=== PATIENT | female | born 1950 | race Caucasian/White ===

== ENCOUNTER 2019-12-15 13:19 | Emergency (ER) | payer MEDICARE ==
--- NOTE | 2019-12-15 14:09 | ED ---
Complex/Multi-Sys Presentation - HPI Summary HPI Summary: 69 y/o female presented to [facility] after a fall 2 days ago. Pt was stepping onto a curb when her leg gave out from under her and she fell. She has pain in the knee, has been limping, and has nearly no ROM. Pt denies fever or chills. She cannot go to the bathroom on her own. Pt has HTN for which she has not been taking her medications due to negligence to get a refill recently. She drinks alcohol every day, but she claims it is not to excess. Medications reviewed. Allergies noted. Home Medications Medication Instructions Recorded Confirmed Type Aspirin EC TAB* [Ecotrin EC Low 81 mg PO DAILY 05/22/14 03/23/16 History Dose 81 MG*] Multivitamin [Multi-Vitamin] 1 tab PO DAILY 05/22/14 03/23/16 History Metoprolol Succinate XL TAB* 50 mg PO BEDTIME 03/18/16 03/23/16 History [Toprol XL TAB*] Timolol 0.25% OPHTH.SOLN* 1 drop BOTH EYES BEDTIME 03/18/16 03/23/16 History [Timoptic Ophth.soln 0.25%] Triamterene/HCTZ 37.5-25 MG* 1 cap PO BEDTIME 03/18/16 03/23/16 History [Dyazide CAP*] amLODIPine TAB* [Norvasc TAB*] 5 mg PO BID 03/18/16 03/23/16 History - History Of Current Complaint Chief Complaint: EDExtremityLower Time Seen by Provider: 12/15/19 13:52 Hx Obtained From: Patient Onset/Duration: Lasting Days, Still Present Severity Currently: Moderate Associated Signs And Symptoms: Positive: Other - positive arthralgia in left knee; negative chills. Negative: Fever - Allergies/Home Medications Allergies/Adverse Reactions: Allergies Allergy/AdvReac Type Severity Reaction Status Date / Time No Known Allergies Allergy Verified 12/15/19 13:23 Home Medications: Home Medications Aspirin EC TAB* [Ecotrin EC Low Dose 81 MG*] 81 mg PO DAILY 05/22/14 [History Confirmed 03/23/16] Multivitamin [Multi-Vitamin] 1 tab PO DAILY 05/22/14 [History Confirmed 03/23/16 ] Metoprolol Succinate XL TAB* [Toprol XL TAB*] 50 mg PO BEDTIME 03/18/16 [ History Confirmed 03/23/16] Timolol 0.25% OPHTH.SOLN* [Timoptic Ophth.soln 0.25%] 1 drop BOTH EYES BEDTIME 03/18/16 [History Confirmed 03/23/16] Triamterene/HCTZ 37.5-25 MG* [Dyazide CAP*] 1 cap PO BEDTIME 03/18/16 [History Confirmed 03/23/16] amLODIPine TAB* [Norvasc TAB*] 5 mg PO BID 03/18/16 [History Confirmed 03/23/16] PMH/Surg Hx/FS Hx/Imm Hx Endocrine/Hematology History: Reports: Other Endocrine/Hematological Disorders - PRE-DIABETIC Cardiovascular History: Reports: Hx Angina - MILD, OCCASSIONAL, NONE SINCE JANUARY 2016, Hx Hypertension - ON MEDS Denies: Hx Pacemaker/ICD Comment Only: Other Cardiovascular Problems/Disorders - FOLLOWED BY DR SOPHIE ROJAS History: Reports: Hx Kidney Stones Musculoskeletal History: Reports: Hx Arthritis - STATES MILD, OCCASSIONAL DISCOMFORT, VARIOUS AREAS Sensory History: Reports: Hx Cataracts - BILATERAL, Hx Contacts or Glasses - GLASSES, Hx Glaucoma - ON NIGHTLY DROPS Denies: Hx Hearing Aid Opthamlomology History: Reports: Hx Cataracts - BILATERAL, Hx Contacts or Glasses - GLASSES, Hx Glaucoma - ON NIGHTLY DROPS Psychiatric History: Denies: Hx Panic Disorder - Surgical History Surgery Procedure, Year, and Place: [facility] [place] Hx Anesthesia Reactions: No Infectious Disease History: No Infectious Disease History: Denies: Traveled Outside the [place] in Last 30 Days - Social History Alcohol Use: Daily Alcohol Amount: 1 GLASS WINE NIGHTLY Substance Use Type: Reports: None Smoking Status (MU): Never Smoked Tobacco Have You Smoked in the Last Year: No Review of Systems Negative: Fever, Chills Positive: Other - arthralgia, left knee; severely decreased ROM All Other Systems Reviewed And Are Negative: Yes Physical Exam - Summary Physical Exam Summary: Constitutional: Well-developed, Well-nourished, Alert. (-) Distressed Skin: Warm, Dry HENT: Normocephalic; Atraumatic Eyes: Conjunctiva normal Neck: Musculoskeletal ROM normal neck. (-) JVD, (-) Stridor, (-) Tracheal deviation Cardio: Rhythm regular, rate normal, Heart sounds normal; Intact distal pulses; Radial pulses are 2+ and symmetric. (-) Murmur; DP/PT pulses 2+ Pulmonary/Chest wall: Effort normal. (-) Respiratory distress, (-) Wheezes, (-) Rales Abd: Soft, (-) tenderness, (-) Distension, (-) Guarding, (-) Rebound Musculoskeletal: (-) Edema; Left knee held in flexion, swollen compared to right , no erythema or warmth; pain with lateral manipulation of left knee; anterior and posterior drawer signs negative Lymph: (-) Cervical adenopathy Neuro: Alert, Oriented x3 Psych: Mood and affect Normal Triage Information Reviewed: Yes Vital Signs On Initial Exam: Initial Vitals Temp Pulse Resp BP Pulse Ox 97.4 F 101 16 200/95 97 12/15/19 13:19 12/15/19 13:19 12/15/19 13:19 12/15/19 13:19 12/15/19 13:19 Vital Signs Reviewed: Yes Procedures - Sedation Patient Received Moderate/Deep Sedation with Procedure: No Diagnostics - Vital Signs Vital Signs Temp Pulse Resp BP Pulse Ox 12/15/19 13:19 97.4 F 101 16 200/95 97 - Laboratory Lab Statement: Any lab studies that have been ordered have been reviewed, and results considered in the medical decision making process. - Radiology left knee xray Radiology Interpretation Completed By: Radiologist Summary of Radiographic Findings: IMPRESSION: 1. There is a questionable nondisplaced fracture line extending from the intercondylar. groove of the femur proximally towards the medial aspect of the distal metaphysis. If the. patient's clinical presentation is consistent with nondisplaced fracture then superior. characterization can be made with CAT scan. 2. Degenerative changes and small suprapatellar joint effusion. This report was reviewed by the ED physician. - CT LE CT Interpretation Completed By: Radiologist Summary of CT Findings: IMPRESSION: CT findings indicate nondisplaced fracture involving the distal left femur as. described above. This report was reviewed by the ED physician. Complex Multi-Symp Course/Dx Course Of Treatment: Patient is here after a low mechanism injury to her left knee. The patient does have swelling to her left knee with tenderness with lateral flexion. Patient had an x-ray which showed a possible nondisplaced distal femur fracture. Patient had a social CT scan which did confirm this nondisplaced fracture. Orthopedic surgery was called and recommended a knee immobilizer and following up in clinic tomorrow. Patient and family were comfortable with this. Patient was encouraged to have her blood pressure rechecked at her primary care office as well. - Diagnoses Provider Diagnoses: Femur fracture, left - Physician Notifications Discussed Care Of Patient With: Rai Hernandez Time Discussed With Above Provider: 17:09 Instructed by Provider To: Other - Dr. Hernandez will look at CT in more detail. At 1721 Dr. Hernandez recommended a knee brace and a follow up in his office. Discharge ED - Sign-Out/Discharge Documenting (check all that apply): Patient Departure - dc - Discharge Plan Condition: Stable Disposition: HOME Patient Education Materials: Leg Fracture (ED) Referrals: Rai Hernandez MD [Medical Doctor] - Additional Instructions: Please take 600 mg of ibuprofen every 6 hours for pain You can add 650 mg of Tylenol every 6 hours for pain You can bear weight on your leg but do not put full weight Call the orthopedic surgeon's office tomorrow morning to set an appointment for tomorrow - Billing Disposition and Condition Condition: STABLE Disposition: Home - Attestation Statements Document Initiated by Lucy: Yes Documenting Scribe: Rikki Mallory Provider For Whom Lucy is Documenting (Include Credential): Deep Sorensen MD Scribe Attestation: Rikki García, scribed for Deep Sorensen MD on 12/15/19 at 2048. Scribe Documentation Reviewed: Yes Provider Attestation: The documentation as recorded by the Rikki coburn accurately reflects the service I personally performed and the decisions made by , Deep Sorensen MD Status of Scribe Document: Viewed
[2019-12-15] MEDS ORDERED: Ibuprofen TAB* 600 MG PO ONE (14:14)
[2019-12-15] MEDS ORDERED: Acetaminophen TAB* 325 MG PO ONE (14:14)
[2019-12-15 19:02] VITALS: BP 230/110
== END 2019-12-15 18:57 | disposition home or self-care (01) ==
LOC: ED 13:19
DX: S72.402A Unspecified fracture of lower end of left femur, initial encounter for closed fracture (principal); M25.462 Effusion, left knee; W18.30XA Fall on same level, unspecified, initial encounter; Y92.9 Unspecified place or not applicable; I10 Essential (primary) hypertension; Z79.82 Long term (current) use of aspirin; Z79.899 Other long term (current) drug therapy
CPT/HCPCS: 99282; A9270-GY